=== PATIENT | male | born 1945 | race Caucasian/White ===

== ENCOUNTER 2017-04-20 12:47 | Outpatient (CLI) | payer MEDICARE, OTHER ==
[2017-04-20 18:47] LABS: BASOPHILS % (AUTO) 0.7 %; EOSINOPHILS # (AUTO) 0.2 10^3/uL (0.0-0.7); HCT - HEMATOCRIT 43.2 % (42.0-52.0); HGB - HEMOGLOBIN 14.2 g/dL (14.0-18.0); LYMPHOCYTES # (AUTO) 1.3 10^3/uL (1.5-3.5); LYMPHOCYTES % (AUTO) 24.6 %; MEAN CORPUSCULAR HEMOGLOBIN 32.2 pg (27.0-31.0); MEAN CORPUSCULAR VOLUME 97.6 fL (80.0-94.0); MONOCYTES # (AUTO) 0.5 10^3/uL (0.0-1.0); MONOCYTES % (AUTO) 9.2 %; NEUTROPHILS # (AUTO) 3.1 10^3/uL (1.5-6.6); NEUTROPHILS % (AUTO) 61.5 %; NUCLEATED RED BLOOD CELLS AUTO 0.1 /100WBC; RED BLOOD COUNT 4.42 10^6/uL (4.70-6.10); RED CELL DISTRIBUTION WIDTH 14.1 % (12.0-15.0); UNCORRECTED WHITE BLOOD COUNT 5.1 x10^3/uL; WHITE BLOOD COUNT 5.1 x10^3/uL (4.8-10.8)
[2017-04-20 19:12] LABS: ALBUMIN/GLOBULIN RATIO 1.4 (1.0-2.2); BUN - BLOOD UREA NITROGEN 22 mg/dL (6-20); CALCIUM 9.3 mg/dL (8.5-10.3); CARBON DIOXIDE - CO2 23 mmol/L (21-32); CHLORIDE 108 mmol/L (101-111); CHOL/HDL RATIO 4.1 (<5.0); CHOLESTEROL 239 mg/dL; GFR - MDRD 73 (>89); GLUCOSE 103 mg/dL (70-100); HDL CHOLESTEROL 58 mg/dL; LDL/HDL RATIO 2.7 (<3.6); POTASSIUM 4.6 mmol/L (3.5-5.0); SODIUM 140 mmol/L (135-145); TOTAL PROTEIN 6.9 g/dL (6.7-8.2); TRIGLYCERIDES 115 mg/dL; VLDL CHOLESTEROL 23 mg/dL
== END 2017-04-20 12:48 ==
LOC: LAB.WCP 12:47
PROVIDERS: ATTEND Family Medicine
DX: I10 Essential (primary) hypertension (principal)
CPT/HCPCS: 36415; 80053; 80061; 85025; G0103; 84153

== ENCOUNTER 2018-04-25 08:00 | Outpatient (CLI) | payer MEDICARE, OTHER ==
[2018-04-25 19:04] LABS: BASOPHILS # (AUTO) 0.1 10^3/uL (0.0-0.1); BASOPHILS % (AUTO) 1.2 %; EOSINOPHILS # (AUTO) 0.2 10^3/uL (0.0-0.7); EOSINOPHILS % (AUTO) 3.6 %; HGB - HEMOGLOBIN 14.4 g/dL (14.0-18.0); LYMPHOCYTES # (AUTO) 1.3 10^3/uL (1.5-3.5); LYMPHOCYTES % (AUTO) 26.8 %; MEAN CORPUSCULAR HEMOGLOBIN 32.9 pg (27.0-31.0); MEAN CORPUSCULAR HGB CONC 33.4 g/dL (32.0-36.0); MEAN CORPUSCULAR VOLUME 98.5 fL (80.0-94.0); MEAN PLATELET VOLUME 10.1 fL (7.4-11.4); MONOCYTES # (AUTO) 0.5 10^3/uL (0.0-1.0); MONOCYTES % (AUTO) 9.3 %; NEUTROPHILS # (AUTO) 2.9 10^3/uL (1.5-6.6); NEUTROPHILS % (AUTO) 59.1 %; PLT - PLATELET COUNT 193 10^3/uL (130-450); RED BLOOD COUNT 4.38 10^6/uL (4.70-6.10); RED CELL DISTRIBUTION WIDTH 14.2 % (12.0-15.0); WHITE BLOOD COUNT 4.9 x10^3/uL (4.8-10.8)
[2018-04-25 19:25] LABS: ALBUMIN/GLOBULIN RATIO 1.4 (1.0-2.2); ALKALINE PHOSPHATASE 60 IU/L (42-121); ALT ALANINE AMINOTRANSFERASE 33 IU/L (10-60); AST ASPARTATE AMINOTRANSFERASE 29 IU/L (10-42); BILIRUBIN,TOTAL 1.2 mg/dL (0.2-1.0); BUN - BLOOD UREA NITROGEN 26 mg/dL (6-20); CALCIUM 9.5 mg/dL (8.5-10.3); CARBON DIOXIDE - CO2 26 mmol/L (21-32); CHLORIDE 106 mmol/L (101-111); CHOL/HDL RATIO 2.8 (<5.0); CHOLESTEROL 167 mg/dL; GFR - MDRD 73 (>89); GLUCOSE 99 mg/dL (70-100); HDL CHOLESTEROL 60 mg/dL; LDL CHOLESTEROL,CALCULATED 95 mg/dL; LDL/HDL RATIO 1.6 (<3.6); SODIUM 139 mmol/L (135-145); TOTAL PROTEIN 6.9 g/dL (6.7-8.2); VLDL CHOLESTEROL 12 mg/dL
== END 2018-04-25 08:01 | disposition home or self-care (01) ==
LOC: LAB.WCP 08:00
PROVIDERS: ATTEND Family Medicine
DX: R74.8 Abnormal levels of other serum enzymes (principal); E78.5 Hyperlipidemia, unspecified; I10 Essential (primary) hypertension; Z12.5 Encounter for screening for malignant neoplasm of prostate
CPT/HCPCS: 36415; 80053; 80061; 84443; 85025; G0103; 83721; 84153

== ENCOUNTER 2022-04-23 14:47 | Emergency (ER) | payer MEDICARE ==
--- NOTE | 2022-04-23 15:12 | ED Physician Documentation ---
History of Present Illness - Stated complaint Stated Complaint: 20FT FALL - Chief complaint Chief Complaint: Trauma Hd/Nk - History obtained from History obtained from: Patient, Family, EMS - History of Present Illness Timing: Today Pain level max: 4 Pain level now: 4 - Additonal information Additional information: Patient is a 76-year-old male brought in by EMS today after a fall down an embankment behind his house. He was pulled back over the embankment in a sling. He denies any injuries other than his right knee feels sore and swollen. 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 No head, neck, back pain. Worse with movement, better with rest. Denies taking any blood thinners. Patient rolled down the embankment and through several layers of brush. Unknown last tetanus. Review of Systems Ten Systems: 10 systems reviewed and negative Constitutional: denies: Fever, Chills Throat: denies: Sore throat Cardiac: denies: Chest pain / pressure, Palpitations, Calf pain Respiratory: denies: Cough GI: denies: Nausea, Vomiting, Diarrhea Skin: denies: Rash Musculoskeletal: denies: Neck pain, Back pain Neurologic: denies: Generalized weakness, Focal weakness, Numbness, Confused, Headache, Head injury, LOC PD PAST MEDICAL HISTORY - Past Medical History Past Medical History: Yes Cardiovascular: Hypertension Respiratory: None Endocrine/Autoimmune: None GI: None : None Psych: Depression Musculoskeletal: Osteoarthritis Derm: None - Past Surgical History Past Surgical History: Yes Ortho: Other - Present Medications Home Medications: Ambulatory Orders Medication Instructions Recorded Confirmed Amlodipine Besylate/Benazepril 1 each PO DAILY 02/21/14 07/20/16 [Amlodipine-Benazepril 5-20 mg] Benazepril HCl 10 mg PO DAILY #30 tablet 02/21/14 07/20/16 Sertraline [Zoloft] 50 mg PO DAILY 02/21/14 07/20/16 - Allergies Allergies/Adverse Reactions: Allergies Allergy/AdvReac Type Severity Reaction Status Date / Time No Known Drug Allergies Allergy Verified 02/21/14 08:58 - Social History Does the pt smoke?: No Smoking Status: Never smoker Does the pt drink ETOH?: Yes Does the pt have substance abuse?: No - Immunizations Immunizations are current?: Yes PD ED PE NORMAL - Vitals Vital signs reviewed: Yes - General General: Alert and oriented X 3, No acute distress - HEENT HEENT: Atraumatic, PERRL, Ears normal, Moist mucous membranes, Pharynx benign - Neck Neck: Supple, no meningeal sign, No bony TTP - Cardiac Cardiac: RRR, Strong equal pulses - Respiratory Respiratory: No respiratory distress, Clear bilaterally - Abdomen Abdomen: Soft, Non tender, Non distended - Back Back: No CVA TTP, No spinal TTP - Derm Derm: Warm and dry - Extremities Extremities: Other (Tender to palpation over the right tibial plateau, there is swelling at the site as well. Otherwise normal examination of the bilateral hips, knees, ankles, shoulders, elbows and wrists. NVI) - Neuro Neuro: Alert and oriented X 3 - Psych Psych: Normal mood, Normal affect Results - Vitals Vitals: Vital Signs - 24 hr 04/23/22 04/23/22 04/23/22 15:03 16:07 16:55 Temperature 36.7 C Heart Rate 60 59 L 58 L Respiratory 12 12 18 Rate Blood Pressure 130/70 135/72 H 141/93 H O2 Saturation 100 99 100 Oxygen O2 Source Room air - Rads (name of study) Head CT Radiology: Final report received, EMP read contemporaneously, See rad report Cervical spine CT Radiology: Final report received, EMP read contemporaneously, See rad report Right knee x-ray Radiology: Final report received, EMP read contemporaneously, See rad report R tib fib xray Radiology: Final report received, EMP read contemporaneously, See rad report PD MEDICAL DECISION MAKING - ED course Complexity details: reviewed results, re-evaluated patient, considered differential, d/w patient ED course: Patient is a 76-year-old male who presents to the emergency department after a fall down an embankment, rolling through several shrubs on the way down. Has multiple abrasions, these were cleansed and bandaged. No acute findings on head CT, cervical spine CT or x-ray of the right knee/tib-fib. There is a small amount of bruising and swelling near the right knee, but no ligamentous injury. Ambulating without difficulty in the emergency department. C-collar removed after negative CT. Neurovascularly intact. No other acute injuries. No pain in the back. Patient and family counseled regarding signs and symptoms for which I believe and urgent re-evaluation would be necessary. Patient with good understanding of and agreement to plan and is comfortable going home at this time This document was made in part using voice recognition software. While efforts are made to proofread this document, sound alike and grammatical errors may occur. Departure - Departure Disposition: 01 Home, Self Care Clinical Impression: Abrasion Contusion of leg, right Qualifiers: Encounter type: initial encounter Qualified Code(s): S80.11XA - Contusion of right lower leg, initial encounter Fall Qualifiers: Encounter type: initial encounter Qualified Code(s): W19.XXXA - Unspecified fall, initial encounter Condition: Good Instructions: ED Abrasion, ED Contusion Lower Ext Follow-Up: Your,doctor in 1 week [Other] Comments: He can use Motrin or Tylenol as needed for pain at home. Your x-rays do not show any acute abnormalities today. Your CT scans are normal as well. Would recommend icing the swollen area by your knee. You can elevate and compress the area with an Devan bandage if you like as well. Return if you worsen Discharge Date/Time: 04/23/22 16:54
--- NOTE | 2022-04-23 15:25 | CT Report ---
PROCEDURE: CERVICAL SPINE WO INDICATIONS: fall, head/neck injury TECHNIQUE: Noncontrast 3 mm thick sections acquired from the skull base to the T4 level. Sagittal and coronal r eformats were then constructed. For radiation dose reduction, the following was used: automated exp osure control, adjustment of mA and/or kV according to patient size. COMPARISON: None. FINDINGS: Image quality: Excellent. Bones: No fractures or dislocations. Visualized superior ribs are intact. Degenerative disc diseas e at C3-4, C4-5, C5-6, and C6-7. Disc osteophytes are seen at multiple levels. There is multilevel fo raminal stenosis. Mild central canal stenosis at C3-4. Soft tissues: Prevertebral soft tissues are normal in thickness. No paravertebral hematomas. No ap ical pneumothoraces. IMPRESSION: 1. No acute traumatic abnormality of the cervical spine. 2. Multilevel degenerative changes. Reviewed by: Ethan Broderick on 04/23/2022 2:24 PM HEMANT Approved by: Ethan Broderick on 04/23/2022 2:24 PM AKEPIFANIO Station ID: [id number]
--- NOTE | 2022-04-23 15:29 | CT Report ---
PROCEDURE: HEAD WO INDICATIONS: fall, head/neck injury TECHNIQUE: Noncontrast 4.5 mm thick angled axial sections acquired from the foramen magnum to the vertex. For r adiation dose reduction, the following was used: automated exposure control, adjustment of mA and/or kV according to patient size. COMPARISON: None. FINDINGS: Image quality: Excellent. CSF spaces: Basal cisterns are patent. No extra-axial fluid collections. Ventricles are normal in size and shape. Brain: No midline shift. No intracranial masses or hemorrhage. Cruz-white matter interface is norm al. Skull and face: Calvarium and visualized facial bones are intact, without suspicious lesions. Sinuses: Visualized sinuses and mastoids are clear. IMPRESSION: No acute intracranial abnormality. Reviewed by: Ethan Broderick on 04/23/2022 2:28 PM HEMANT Approved by: Ethan Broderick on 04/23/2022 2:28 PM HEMANT Station ID: [id number]
--- NOTE | 2022-04-23 15:31 | XRAY Report ---
PROCEDURE: Tib/Fib RT INDICATIONS: fall 20 feet, R knee pain TECHNIQUE: 2 views of the tibia and fibula were acquired. COMPARISON: None FINDINGS: Bones: Postoperative changes of right knee replacement. No fractures or dislocations. No suspicious bony lesions. Soft tissues: No suspicious soft tissue calcifications or masses. IMPRESSION: Normal right tibia/fibula. Reviewed by: Ethan Broderick on 04/23/2022 2:30 PM HEMANT Approved by: Ethan Broderick on 04/23/2022 2:30 PM LAEPIFANIO Station ID: [id number]
--- NOTE | 2022-04-23 15:32 | XRAY Report ---
PROCEDURE: Knee 2 View RT INDICATIONS: fall 20 feet, R knee pain TECHNIQUE: 2 views of the right knee(s) were acquired. COMPARISON: None. FINDINGS: Bones: Postoperative changes of total right knee replacement. No fractures or dislocations. No susp icious bony lesions. Soft tissues: No significant joint effusion. No suspicious soft tissue calcifications. IMPRESSION: No acute abnormality of the right knee. Reviewed by: Ethan Broderick on 04/23/2022 2:31 PM HEMANT Approved by: Ethan Broderick on 04/23/2022 2:31 PM HEMANT Station ID: [id number]
[2022-04-23] MEDS ORDERED: TETANUS/DIPHTHERIA/PERTUSSIS 0.5 ML SYRINGE IM ONE (16:06)
[2022-04-23] MEDS ORDERED: KETOROLAC 30 MG/ML VIAL IVP STA (16:06)
[2022-04-23 16:57] VITALS: BP 141/93
== END 2022-04-23 16:54 | disposition home or self-care (01) ==
LOC: EDUNIT# → ED 14:47
DX: S80.11XA Contusion of right lower leg, initial encounter (principal); S80.211A Abrasion, right knee, initial encounter; W17.81XA Fall down embankment (hill), initial encounter; I10 Essential (primary) hypertension; Z96.651 Presence of right artificial knee joint
CPT/HCPCS: 36415; 90471; 96374; 99282

== ENCOUNTER 2023-04-25 17:05 | Outpatient (CLI) | payer MEDICARE ==
[2023-04-25 17:24] LABS: BASOPHILS % (AUTO) 0.7 %; EOSINOPHILS % (AUTO) 0.2 %; HCT - HEMATOCRIT 41.2 % (42.0-52.0); HGB - HEMOGLOBIN 13.9 g/dL (14.0-18.0); LYMPHOCYTES # (AUTO) 1.1 10^3/uL (1.5-3.5); LYMPHOCYTES % (AUTO) 18.5 %; MEAN CORPUSCULAR HEMOGLOBIN 32.6 pg (27.0-31.0); MEAN CORPUSCULAR HGB CONC 33.7 g/dL (32.0-36.0); MEAN CORPUSCULAR VOLUME 96.7 fL (80.0-94.0); MEAN PLATELET VOLUME 10.7 fL (7.4-11.4); MONOCYTES # (AUTO) 0.4 10^3/uL (0.0-1.0); MONOCYTES % (AUTO) 7.6 %; NEUTROPHILS # (AUTO) 4.1 10^3/uL (1.5-6.6); NEUTROPHILS % (AUTO) 72.8 %; PLT - PLATELET COUNT 193 10^3/uL (130-450); RED BLOOD COUNT 4.26 10^6/uL (4.70-6.10); RED CELL DISTRIBUTION WIDTH 13.2 % (12.0-15.0); WHITE BLOOD COUNT 5.7 x10^3/uL (4.8-10.8)
[2023-04-25 17:44] LABS: ALBUMIN/GLOBULIN RATIO 1.4 (1.0-2.2); ALKALINE PHOSPHATASE 61 IU/L (42-121); ALT ALANINE AMINOTRANSFERASE 22 IU/L (10-60); AST ASPARTATE AMINOTRANSFERASE 22 IU/L (10-42); BILIRUBIN,TOTAL 1.2 mg/dL (0.2-1.0); BUN - BLOOD UREA NITROGEN 18 mg/dL (6-20); CALCIUM 9.5 mg/dL (8.5-10.3); CARBON DIOXIDE - CO2 29 mmol/L (21-32); CHLORIDE 107 mmol/L (101-111); CHOL/HDL RATIO 2.3 (<5.0); CHOLESTEROL 144 mg/dL; CREATININE 1.2 mg/dL (0.6-1.2); GFR - MDRD 59 (>89); GLUCOSE 96 mg/dL (70-100); HDL CHOLESTEROL 63 mg/dL; LDL CHOLESTEROL,CALCULATED 49 mg/dL; LDL/HDL RATIO 0.8 (<3.6); POTASSIUM 4.4 mmol/L (3.5-5.0); SODIUM 142 mmol/L (135-145); TOTAL PROTEIN 6.8 g/dL (6.7-8.2); TRIGLYCERIDES 160 mg/dL; VLDL CHOLESTEROL 32 mg/dL
== END 2023-04-25 17:06 | disposition home or self-care (01) ==
LOC: LAB 17:05
PROVIDERS: ATTEND Physician Assistant
DX: E78.5 Hyperlipidemia, unspecified (principal); R97.20 Elevated prostate specific antigen [PSA]; I10 Essential (primary) hypertension
CPT/HCPCS: 36415; 80053; 80061; 83721; 84153; 85025

== ENCOUNTER 2024-07-02 15:57 | Outpatient (CLI) | payer MEDICARE | END 2024-07-02 23:59 | disposition critical access hospital (66) | LOC: EMS 15:57 | DX: R41.0 Disorientation, unspecified (principal); R45.1 Restlessness and agitation; R26.81 Unsteadiness on feet | CPT/HCPCS: A0425; A0429 ==

== ENCOUNTER 2024-07-02 16:20 | Emergency (ER) | payer MEDICARE ==
--- NOTE | 2024-07-02 16:35 | ED Physician Documentation ---
History of Present Illness - Stated complaint Stated Complaint: REACTION TO INFUSION - Chief complaint Chief Complaint: Neuro - History obtained from History obtained from: Family - Additonal information Additional information: This is a 78-year-old gentleman who has a history of Alzheimer's dementia. He had an infusion of Lecabemab Today at [facility]. He seemed to tolerate the infusion well and was discharged home however on the way home, the patient became combative and delirious which is atypical for him. His stopped at a clinic where he was noted to have a temperature of 100, and was following instructions combative and uncooperative. He was given Decadron and Benadryl and EMS was called to bring him into the emergency department. Here the patient is not able to provide me any history but states that he was in his usual state of health earlier today, has not had any cold symptoms including cough or congestion, no fever at home, has not been complaining of any chest pain or difficulty breathing, has not had any GI symptoms including nausea, vomiting, diarrhea or urinary symptoms. This was his first infusion of this medication. Review of Systems Unable to obtain: Confused, Dementia PD PAST MEDICAL HISTORY - Past Medical History Past Medical History: Yes Cardiovascular: Hypertension Respiratory: None Neuro: Alzhiemer's Endocrine/Autoimmune: None GI: None : None Psych: Depression Musculoskeletal: Osteoarthritis Derm: None - Past Surgical History Past Surgical History: Yes Ortho: Other - Present Medications Home Medications: Ambulatory Orders Medication Instructions Recorded Confirmed Amlodipine Besylate/Benazepril 1 each PO DAILY 02/21/14 07/20/16 [Amlodipine-Benazepril 5-20 mg] Benazepril HCl 10 mg PO DAILY #30 tablet 02/21/14 07/20/16 Sertraline [Zoloft] 50 mg PO DAILY 02/21/14 07/20/16 - Allergies Allergies/Adverse Reactions: Allergies Allergy/AdvReac Type Severity Reaction Status Date / Time No Known Drug Allergies Allergy Verified 07/02/24 16:29 - Social History Does the pt smoke?: No Smoking Status: Never smoker Does the pt drink ETOH?: Yes Does the pt have substance abuse?: No - Immunizations Immunizations are current?: Yes PD ED PE NORMAL - Vitals Vital signs reviewed: Yes - General General: No acute distress, Well developed/nourished, Other (Patient is awake and alert, he is trying to get out of bed, irritated and yelling at his .) - HEENT HEENT: Atraumatic, PERRL, EOMI, Moist mucous membranes - Neck Neck: Supple, no meningeal sign, No adenopathy - Cardiac Cardiac: RRR, No murmur, No gallop, No rub - Respiratory Respiratory: No respiratory distress, Clear bilaterally - Abdomen Abdomen: Normal bowel sounds, Soft, Non tender, Non distended - Derm Derm: Normal color, Warm and dry, No rash - Neuro Neuro: Other (Normal speech, no facial droop, alert and moving all extremities.) Eye Opening: Spontaneous Motor: None (Moves all extremities but does not follow commands.) Verbal: Confused GCS Score: 9 - Psych Psych: Other (Agitated, hitting staff.) Results - Vitals Vitals: Vital Signs - 24 hr 07/02/24 07/02/24 07/02/24 16:21 16:42 17:06 Temperature 39.1 C H 38.0 C H Heart Rate 86 Respiratory 20 Rate Blood Pressure 134/75 H 123/59 L O2 Saturation 93 07/02/24 07/02/24 07/02/24 17:18 17:30 18:00 Temperature 38.0 C H Heart Rate 77 77 74 Respiratory 15 15 16 Rate Blood Pressure 97/76 130/67 130/67 O2 Saturation 94 93 93 07/02/24 19:06 Temperature 37.6 C Heart Rate Respiratory Rate Blood Pressure O2 Saturation Oxygen O2 Source Room air - Labs Labs: Laboratory Tests 07/02/24 07/02/24 07/02/24 16:42 16:42 16:42 WBC 7.4 RBC 4.45 L Hgb 14.1 Hct 42.7 MCV 96.0 H MCH 31.7 H MCHC 33.0 RDW 13.2 Plt Count 141 MPV 10.5 Neut # (Auto) 6.9 H Lymph # (Auto) 0.2 L Anderson # (Auto) 0.2 Eos # (Auto) 0.0 Baso # (Auto) 0.0 Absolute Nucleated RBC 0.00 Nucleated RBC % 0.0 PT 12.4 INR 1.1 Sodium 138 Potassium 4.2 Chloride 108 Carbon Dioxide 22 Anion Gap 8.0 BUN 21 H Creatinine 1.1 Estimated GFR (MDRD) 65 L Glucose 91 Lactic Acid Calcium 9.4 Total Bilirubin 1.1 H AST 51 H ALT 40 Alkaline Phosphatase 74 Total Protein 6.0 L Albumin 4.0 Globulin 2.0 L Albumin/Globulin Ratio 2.0 Lipase 22 Urine Color Urine Clarity Urine pH Ur Specific [place] Urine Protein Urine Glucose (UA) Urine Ketones Urine Occult Blood Urine Nitrite Urine Bilirubin Urine Urobilinogen Ur Leukocyte Esterase Ur Microscopic Review Urine Culture Comments 07/02/24 07/02/24 16:42 18:15 WBC RBC Hgb Hct MCV MCH MCHC RDW Plt Count MPV Neut # (Auto) Lymph # (Auto) Anderson # (Auto) Eos # (Auto) Baso # (Auto) Absolute Nucleated RBC Nucleated RBC % PT INR Sodium Potassium Chloride Carbon Dioxide Anion Gap BUN Creatinine Estimated GFR (MDRD) Glucose Lactic Acid 1.7 Calcium Total Bilirubin AST ALT Alkaline Phosphatase Total Protein Albumin Globulin Albumin/Globulin Ratio Lipase Urine Color YELLOW Urine Clarity CLEAR Urine pH 6.0 Ur Specific [place] 1.015 Urine Protein NEGATIVE Urine Glucose (UA) NEGATIVE Urine Ketones NEGATIVE Urine Occult Blood NEGATIVE Urine Nitrite NEGATIVE Urine Bilirubin NEGATIVE Urine Urobilinogen 0.2 (NORMAL) Ur Leukocyte Esterase NEGATIVE Ur Microscopic Review NOT INDICATED Urine Culture Comments NOT INDICATED PD Medical Decision Making - ED course Complexity details: reviewed old records, reviewed results, re-evaluated patient, considered differential, d/w patient, d/w family ED course: This is a 78-year-old male who presented with acute confusion and agitation after receiving a infusion of Lecanemab For his Alzheimer's dementia. This was his first infusion of this medication. According to up-to-date, infusion reactions can include fever and sick symptoms such as chills achiness shakiness and joint pain, nausea, vomiting hypotension hypertension and oxygen desatura tion. The highest incidence of infusion of reaction occurs with the first infusion. As the patient has a fever on arrival here, we will do a complete septic workup to ensure that this is not related to an underlying illness and I will treat his fever with IV fluids and Tylenol. At this time his agitation will be treated supportively with redirection and one-to-one observation. Will obtain a head CT and chest x-ray. I spoke with the nurse practitioner at the neurology infusion clinic who was aware of this patient. She agreed with the head CT is a more serious reaction to this medication as her brain edema or hemorrhage. She also advised absolutely no anticoagulation. If he improves with supportive care, she will see him outpatient and possibly follow-up with MRI. Anibal improved with Tylenol and IV fluids, his fever resolved and subsequently his delirium resolved. He is back to baseline mentation and has been ambulatory here in the ER, and has had no recurrence of agitation, delirium or any acute neurologic findings at this time. Given reassuring CT and chest x-ray as well as lab work, we suspect this was an acute reaction to the Lecanemab and as it has resolved he is stable for discharge home. His was given strict return precautions however if he should develop recurrence of symptoms or new concerns. We did collect blood cultures given his fever however there are no other signs of infection on exam and I advised that if the blood cultures return positive we would notify her by phone for reevaluation in the ER. I recommended that they touch base with the neurology office tomorrow who is aware of the situation and they have discussed possibly getting an outpatient MRI. Departure - Departure Clinical Impression: Acute delirium Medication adverse effect Qualifiers: Encounter type: initial encounter Qualified Code(s): T50.905A - Adverse effect of unspecified drugs, medicaments and biological substances, initial encounter Condition: Good Instructions: Delirium Care, Delirium and Dementia Difference Comments: Anibal Likely had an adverse reaction to the Medication infusion he had today for his dementia. It caused a fever which caused delirium or acute confusion and agitation. His lab work here today looks quite good, and there were no acute findings on his CT scan or chest x-ray. He has substantially improved her e with treatment of his fever And I think he can be discharged home. If he should have any recurrence of symptoms however he would need to return to the hospital. Otherwise, call the neurology office tomorrow and discuss with them whether they recommend continued infusions or possibly premedication for future infusions. Cristin had also mentioned a possible outpatient MRI. She may want to order that so discussed with her further. Forms: PCP List
[2024-07-02] MEDS: ACETAMINOPHEN 325 MG TABLET PO STA (16:36)
[2024-07-02 16:54] LABS: BASOPHILS % (AUTO) 0.4 %; EOSINOPHILS % (AUTO) 0.3 %; HCT - HEMATOCRIT 42.7 % (42.0-52.0); HGB - HEMOGLOBIN 14.1 g/dL (14.0-18.0); LYMPHOCYTES # (AUTO) 0.2 10^3/uL (1.5-3.5); LYMPHOCYTES % (AUTO) 2.7 %; MEAN CORPUSCULAR HEMOGLOBIN 31.7 pg (27.0-31.0); MEAN PLATELET VOLUME 10.5 fL (7.4-11.4); MONOCYTES # (AUTO) 0.2 10^3/uL (0.0-1.0); MONOCYTES % (AUTO) 2.9 %; NEUTROPHILS # (AUTO) 6.9 10^3/uL (1.5-6.6); NEUTROPHILS % (AUTO) 93.4 %; PLT - PLATELET COUNT 141 10^3/uL (130-450); RED BLOOD COUNT 4.45 10^6/uL (4.70-6.10); RED CELL DISTRIBUTION WIDTH 13.2 % (12.0-15.0); WHITE BLOOD COUNT 7.4 x10^3/uL (4.8-10.8)
[2024-07-02 17:01] LABS: INR 1.1 (0.8-1.2); PT - PROTHROMBIN TIME 12.4 secs (9.9-12.6)
[2024-07-02] MEDS: SODIUM CHLORIDE 0.9% 1,000 ML IV STA (17:04)
[2024-07-02 17:08] LABS: BILIRUBIN,TOTAL 1.1 mg/dL (0.2-1.0); CALCIUM 9.4 mg/dL (8.5-10.3); CREATININE 1.1 mg/dL (0.6-1.3); POTASSIUM 4.2 mmol/L (3.5-4.5)
--- NOTE | 2024-07-02 17:10 | XRAY Report ---
PROCEDURE: Chest 1V INDICATIONS: chest pain TECHNIQUE: One view of the chest was acquired. COMPARISON: None. FINDINGS: Surgical changes and devices: Cardiac loop recorder. Lungs and pleura: No pleural effusions or pneumothorax. Lungs are clear. Mediastinum: Mediastinal contours appear normal. Heart size is normal. Bones and chest wall: No suspicious bony lesions. Overlying soft tissues appear unremarkable. IMPRESSION: No acute cardiopulmonary process. Reviewed by: Amadou Browne MD on 07/02/2024 5:09 PM PDT Approved by: Amadou Browne MD on 07/02/2024 5:09 PM PDT Station ID: [id number]
--- NOTE | 2024-07-02 17:11 | CT Report ---
PROCEDURE: Head WO INDICATIONS: acute confusion/agitation after Lecanemab infusion TECHNIQUE: Noncontrast 4.5 mm thick angled axial sections acquired from the foramen magnum to the vertex. For r adiation dose reduction, the following was used: automated exposure control, adjustment of mA and/or kV according to patient size. COMPARISON: 04/23/22. FINDINGS: Image quality: Excellent. CSF spaces: Basal cisterns are patent. No extra-axial fluid collections. Ventricles are normal in size and shape. Brain: No midline shift. No intracranial masses or hemorrhage. Cruz-white matter interface is norm al. Skull and face: Calvarium and visualized facial bones are intact, without suspicious lesions. Sinuses: Visualized sinuses and mastoids are clear. IMPRESSION: No acute intracranial pathology. Reviewed by: Amadou Browne MD on 07/02/2024 5:10 PM PDT Approved by: Amadou Browne MD on 07/02/2024 5:10 PM PDT Station ID: [id number]
[2024-07-02 17:50] VITALS: O2SAT 93
[2024-07-02 18:22] LABS: BILIRUBIN,URINE NEGATIVE (NEGATIVE); GLUCOSE, URINE (UA) NEGATIVE (NEGATIVE); KETONES,URINE (UA) NEGATIVE (NEGATIVE); LEUKOCYTE ESTERASE, URINE NEGATIVE (NEGATIVE); NITRITE,URINE NEGATIVE (NEGATIVE); OCCULT BLOOD,URINE NEGATIVE (NEGATIVE); PROTEIN,URINE NEGATIVE (NEGATIVE); UROBILINOGEN,URINE 0.2 (NORMAL) E.U./dL (NORMAL)
[2024-07-02 18:23] LABS: CLARITY,URINE CLEAR (CLEAR)
[2024-07-02 19:44] VITALS: BP 121/65
== END 2024-07-02 19:40 | disposition home or self-care (01) ==
LOC: EDUNIT# → ED 16:20
DX: R50.2 Drug induced fever (principal); T50.995A Adverse effect of other drugs, medicaments and biological substances, initial encounter; G30.9 Alzheimer's disease, unspecified; F02.811 Dementia in other diseases classified elsewhere, unspecified severity, with agitation; F05 Delirium due to known physiological condition
CPT/HCPCS: 36415; 70450; 71045; 80053; 81003; 83605; 83690; 85025; 85610; 87040; 99284; A9270; 81001; 87086